=== PATIENT | male | born 1960 | race Caucasian/White ===

== ENCOUNTER → 2023-09-16 07:44 | Outpatient (ROUT) | payer SELFPAY ==
[2023-09-16 08:13] LABS: Hematocrit 39.7 % (41-53); Hemoglobin 13.6 g/dL (13.5-17.5); Mean Corpuscular HGB Conc 34.3 % (30-36); Mean Corpuscular Hemoglobin 29.1 PG (26-34); Mean Corpuscular Volume 84.9 fL (80-100); Platelet Count 283 X10^3/uL (150-400); Red Blood Cell Count 4.68 X10^6/uL (4.5-5.9); Red Cell Distribution Width 13.3 % (11.6-14.8); White Blood Cell Count 8.1 X10^3/uL (4.5-11.0)
[2023-09-16 08:51] LABS: BUN Creatinine Ratio 18.8 (6-22); Blood Urea Nitrogen 13 mg/dL (9-20); Calcium 9.1 mg/dL (8.4-10.2); Carbon Dioxide 28 mmol/L (22-32); Chloride 107 mmol/L (98-107); Estimated Glomerular Filt Rate > 60 mL/min (>60); Glucose 107 mg/dL (80-110); HEMOLYSIS 16 (0-50); Magnesium 2.1 mg/dL (1.6-2.3); Potassium 4.3 mmol/L (3.4-5.1); Sodium 139 mmol/L (137-145)
[2023-09-16 09:01] LABS: NT-proBNP (BNP-Adult 18+) 258 pg/mL (<125)
== END ==
LOC: LAB 07:44
PROVIDERS: Visit Provider Registered Nurse
DX: I10 Essential (primary) hypertension (principal); R60.9 Edema, unspecified
CPT/HCPCS: 36415; 80048; 83735; 83880; 85027

== ENCOUNTER 2024-01-28 16:33 | Emergency (ER) | payer OTHER, MEDICAID, SELFPAY ==
[2024-01-28] VITALS (14 sets, daily range): BP systolic 165–203; BP diastolic 74–94; PULSE 72–85; RESP 18–35; TEMP 36.6; O2SAT 91–97; BMI 30.1
--- NOTE | 2024-01-28 16:39 | EKG_ITS ---
[address] [address] [address] [address] Test Date: 2024-01-28 Pat Name: Marino Mullen Department: Room: Gender: Male Protection Consultant: teto : 1960 Requested By: Order Number: [id number] Reading MD: Talon Velazco Measurements Intervals [place] Rate: 72 P: 52 NE: 146 QRS: 73 QRSD: 86 T: 46 QT: 396 QTc: 433 Interpretive Statements Normal sinus rhythm Electronically Signed On 01-29-2024 17:32:18 PST by Talon Velazco
--- NOTE | 2024-01-28 16:39 | DI.RAD.S_ITS ---
PROCEDURE: XR CHEST 1V INDICATIONS: Shortness of breath TECHNIQUE: One view of the chest was acquired. COMPARISON: None. FINDINGS: Surgical changes and devices: None. Lungs and pleura: Lungs are difficult to accurately assess due to reduced inspiratory volume and patient rotation and tilt rightward. This causes crowding of bronchovascular markings, left slightly greater than right. No pleural effusions or pneumothorax. Mediastinum: Mediastinal contours appear normal. Heart size is normal. Bones and chest wall: No suspicious bony lesions. Overlying soft tissues appear unremarkable. IMPRESSION: Prominent reduced inspiration and mild rotation and tilt rightward. Limited study, no definite acute disease. Dictated by: Arie Miguel M.D. on 01/28/2024 at 17:00 Approved by: Arie Miguel M.D. on 01/28/2024 at 17:00
[2024-01-28 16:52] LABS: INR 1.2 (0.9-1.3); Prothrombin Time 13.2 SECONDS (9.4-12.5)
[2024-01-28 16:53] LABS: Add Manual Diff / Slide Review NO; Basophils Absolute Auto 100 /uL (0-100); Basophils Percent Auto 0.6 % (0-2); Eosinophils Absolute Auto 300 /uL (0-450); Eosinophils Percent Auto 2.1 % (2-4); Hematocrit 43.3 % (41-53); Hemoglobin 14.3 g/dL (13.5-17.5); Lymphocytes Absolute Auto 1600 /uL (1100-4500); Lymphocytes Percent Auto 11.3 % (25-40); Mean Corpuscular HGB Conc 33.1 % (30-36); Mean Corpuscular Hemoglobin 28.3 PG (26-34); Mean Corpuscular Volume 85.3 fL (80-100); Monocytes Absolute Auto 1300 /uL (0-900); Monocytes Percent Auto 9.4 % (3-14); Neutrophils Absolute Auto 10600 /uL (1500-7000); Neutrophils Percent Auto 76.6 % (50-75); Platelet Count 302 X10^3/uL (150-400); Red Blood Cell Count 5.07 X10^6/uL (4.5-5.9); Red Cell Distribution Width 13.4 % (11.6-14.8); White Blood Cell Count 13.9 X10^3/uL (4.5-11.0)
[2024-01-28 16:56] LABS: Lactate (Lactic Acid) 1.1 mmol/L (0.7-2.1)
[2024-01-28 16:57] LABS: Alanine Aminotransferase 9 IU/L (<50); Albumin 4.5 g/dL (3.5-5.0); Albumin Globulin Ratio 1.5 (1.0-2.8); Alkaline Phosphatase 123 U/L (38-126); Aspartate Aminotransferase 25 IU/L (17-59); BUN Creatinine Ratio 18.5 (6-22); Bilirubin Total 0.6 mg/dL (0.2-1.3); Blood Urea Nitrogen 15 mg/dL (9-20); Calcium 9.3 mg/dL (8.4-10.2); Carbon Dioxide 29 mmol/L (22-32); Chloride 101 mmol/L (98-107); Estimated Glomerular Filt Rate > 60 mL/min (>60); Globulin 3.1 g/dL (1.7-4.1); Glucose 133 mg/dL (80-110); HEMOLYSIS < 15 (0-50); Potassium 4.4 mmol/L (3.4-5.1); Sodium 138 mmol/L (137-145); Total Protein 7.6 g/dL (6.3-8.2)
[2024-01-28 17:07] LABS: NT-proBNP (BNP-Adult 18+) 506 pg/mL (<125)
[2024-01-28 17:08] LABS: Troponin I < 0.012 ng/mL (0.01-0.034)
--- NOTE | 2024-01-28 17:43 | PC.NURSE ---
This RNs first interaction with patient.
[2024-01-28 17:46] LABS: Adenovirus Not Detected (Not Detect); B. parapertussis Not Detected (Not Detecte); Bordetella pertussis Not Detected (Not Detect); Chlamydophila pneumoniae Not Detected (Not Detect); Coronavirus 229E Not Detected (Not Detect); Coronavirus HKU1 Not Detected (Not Detect); Coronavirus NL 63 Not Detected (Not Detect); Coronavirus OC43 Not Detected (Not Detect); Human Metapneumovirus Not Detected (Not Detect); Human Rhinovirus/Enterovirus Detected (Not Detect); Influenza A Not Detected (Not Detect); Influenza B Not Detected (Not Detect); Mycoplasma pneumoniae Not Detected (Not Detect); Parainfluenza Virus 1 Not Detected (Not Detect); Parainfluenza Virus 2 Not Detected (Not Detect); Parainfluenza Virus 3 Not Detected (Not Detect); Parainfluenza Virus 4 Not Detected (Not Detect); Respiratory Syncytial Virus Not Detected (Not Detect); SARS- CoV-2 Not Detected (Not Detecte)
--- NOTE | 2024-01-28 18:25 | ED_ITS ---
HPI - General Adult General Chief complaint: Upper Respiratory Symptoms Stated complaint: URI Time Seen by Provider: 01/28/24 18:03 Source: patient Mode of arrival: EMS Limitations: other ( Parkinson's disease) History of Present Illness HPI narrative: patient is a 63-year-old male. History of Parkinson's disease. It was somewhat difficult to understand him however we were able to communicate with an HPI and review of systems. He was here from [facility]. Has had URI like symptoms for at least the past 24 hours if not somewhat longer. He states he was having some problems breathing. No shortness of breath. He does not ambulate. Uses a wheelchair at baseline. Not on home oxygen. Has been coughing, fevers, shortness of breath and wheezing at the facility. He denies any abdominal pain. No sore throat. Does have lower extremity swelling but he states this is not new. Related Data Allergies Allergy/AdvReac Type Severity Reaction Status Date / Time codeine Allergy Verified 01/28/24 16:46 Penicillins Allergy Verified 01/28/24 16:46 Review of Systems Review of Systems Narrative: see HPI Exam Initial Vital Signs Initial Vital Signs: Vital Signs Temperature 97.9 F 01/28/24 16:44 Pulse Rate 85 01/28/24 16:44 Respiratory Rate 22 01/28/24 16:44 Blood Pressure 185/88 H 01/28/24 16:44 Pulse Oximetry 97 01/28/24 16:44 Oxygen Delivery Method Room Air 01/28/24 16:44 Const General: cooperative HENMT Head: normal to inspection and normocephalic Resp Effort & Inspection: cough, not labored and tachypneic Auscultation: rhonchi and wheezes Cardio Rate: regular rate Rhythm: regular rhythm GI Inspection: normal to inspection Extrem General: edema Course Orders Ordered: ED Orders 01/28/24 16:30 Complete Blood Count AUTO DIFF Stat Comprehensive Metabolic Panel Stat Lactate (Lactic Acid) Stat NT-proBNP (BNP-Adult 18+) Stat Prothrombin Time INR Stat Troponin I Stat 01/28/24 16:39 XR chest 1V Stat EKG-12 Lead Stat 01/28/24 16:41 Respiratory Panel (Film Array) Stat Discontinued Medications Albuterol (Albuterol Hfa Prepack) 1 box [facility] [place] DIRECTED ONE Stop: 01/28/24 19:24 Last Admin: 01/28/24 20:28 Dose: 1 box Documented By: Albuterol/Ipratropium (Albuterol/Ipratropium 3 Ml Ampul) 3 ml INH NOW ONE Stop: 01/28/24 18:27 Last Admin: 01/28/24 18:36 Dose: 3 ml Documented By: REECE Vital Signs Vital signs: Vital Signs - 8 hr 01/28/24 16:44 01/28/24 17:44 01/28/24 18:00 Temperature 97.9 F Pulse Rate 85 74 75 Respiratory Rate 22 26 H Blood Pressure 185/88 H Pulse Oximetry 97 94 96 Oxygen Delivery Method Room Air 01/28/24 18:01 01/28/24 18:01 01/28/24 18:30 Temperature Pulse Rate 72 74 Respiratory Rate 29 H 35 H Blood Pressure 186/94 H Pulse Oximetry 96 95 Oxygen Delivery Method 01/28/24 18:31 01/28/24 18:31 01/28/24 18:36 Temperature Pulse Rate 74 79 Respiratory Rate 35 H 30 H Blood Pressure 166/76 H Pulse Oximetry 91 97 Oxygen Delivery Method Room Air 01/28/24 19:00 01/28/24 19:01 01/28/24 19:01 Temperature Pulse Rate 77 77 Respiratory Rate 24 30 H Blood Pressure 203/83 H Pulse Oximetry 96 95 Oxygen Delivery Method 01/28/24 19:30 01/28/24 19:31 01/28/24 19:31 Temperature Pulse Rate 79 79 Respiratory Rate 20 18 Blood Pressure 179/81 H Pulse Oximetry 97 97 Oxygen Delivery Method 01/28/24 20:00 01/28/24 20:00 01/28/24 20:30 Temperature Pulse Rate 79 79 Respiratory Rate 27 H 29 H Blood Pressure 174/77 H Pulse Oximetry 95 95 Oxygen Delivery Method 01/28/24 20:30 01/28/24 21:00 01/28/24 21:00 Temperature Pulse Rate 79 Respiratory Rate 32 H Blood Pressure 167/77 H 165/74 H Pulse Oximetry 95 Oxygen Delivery Method Medical Decision Making Lab Data Lab results reviewed: Yes I reviewed the patient's lab results. 01/28/24 16:30 01/28/24 16:30 Labs: Lab Results 01/28/24 01/28/24 Range/Units 16:30 16:41 WBC 13.9 H (4.5-11.0) X10^3/uL RBC 5.07 (4.5-5.9) X10^6/uL Hgb 14.3 (13.5-17.5) g/dL Hct 43.3 (41-53) % MCV 85.3 (80-100) fL MCH 28.3 (26-34) PG MCHC 33.1 (30-36) % RDW 13.4 (11.6-14.8) % Plt Count 302 (150-400) X10^3/uL Neut % (Auto) 76.6 H (50-75) % Lymph % (Auto) 11.3 L (25-40) % Coffee % (Auto) 9.4 (3-14) % Eos % (Auto) 2.1 (2-4) % Baso % (Auto) 0.6 (0-2) % Neut # (Auto) 89911 H (1155-6101) /uL Lymph # (Auto) 1600 (1575-1983) /uL Coffee # (Auto) 1300 H (0-900) /uL Eos # (Auto) 300 (0-450) /uL Baso # (Auto) 100 (0-100) /uL PT 13.2 H (9.4-12.5) SECONDS INR 1.2 (0.9-1.3) Sodium 138 (137-145) mmol/L Potassium 4.4 (3.4-5.1) mmol/L Chloride 101 (98-107) mmol/L Carbon Dioxide 29 (22-32) mmol/L BUN 15 (9-20) mg/dL Creatinine 0.81 (0.66-1.25) mg/dL Estimated GFR > 60 (>60) mL/min BUN/Creatinine Ratio 18.5 (6-22) Glucose 133 H (80-110) mg/dL Lactate 1.1 (0.7-2.1) mmol/L Calcium 9.3 (8.4-10.2) mg/dL Total Bilirubin 0.6 (0.2-1.3) mg/dL AST 25 (17-59) IU/L ALT 9 (<50) IU/L Alkaline Phosphatase 123 (38-126) U/L Troponin I < 0.012 (0.01-0.034) ng/mL NT-Pro-B Natriuret Pep 506 H (<125) pg/mL Total Protein 7.6 (6.3-8.2) g/dL Albumin 4.5 (3.5-5.0) g/dL Globulin 3.1 (1.7-4.1) g/dL Albumin/Globulin Ratio 1.5 (1.0-2.8) Chlamy pneumoniae PCR Not detected (Not Detect) Adenovirus (PCR) Not detected (Not Detect) B. pertussis DNA (PCR) Not detected (Not Detect) B.parapertussis DNA PCR Not detected (Not Detecte) Coronavirus OC43 (PCR) Not detected (Not Detect) Coronavirus HKU1 (PCR) Not detected (Not Detect) Coronavirus 229E (PCR) Not detected (Not Detect) SARS-CoV-2 (PCR) Not detected (Not Detecte) Coronavirus NL63 (PCR) Not detected (Not Detect) Human Metapneumovir PCR Not detected (Not Detect) Influenza Type A (PCR) Not detected (Not Detect) Influenza Type B (PCR) Not detected (Not Detect) M. pneumoniae (PCR) Not detected (Not Detect) Parainfluenza 1 (PCR) Not detected (Not Detect) Parainfluenza 2 (PCR) Not detected (Not Detect) Parainfluenza 3 (PCR) Not detected (Not Detect) Parainfluenza 4 (PCR) Not detected (Not Detect) RSV (PCR) Not detected (Not Detect) Entero/Rhino (PCR) Detected H (Not Detect) Imaging Data Chest x-ray: Radiologist's Impression: PROCEDURE: XR CHEST 1V INDICATIONS: Shortness of breath TECHNIQUE: One view of the chest was acquired. COMPARISON: None. FINDINGS: Surgical changes and devices: None. Lungs and pleura: Lungs are difficult to accurately assess due to reduced inspiratory volume and patient rotation and tilt rightward. This causes crowding of bronchovascular markings, left slightly greater than right. No pleural effusions or pneumothorax. Mediastinum: Mediastinal contours appear normal. Heart size is normal. Bones and chest wall: No suspicious bony lesions. Overlying soft tissues appear unremarkable. IMPRESSION: Prominent reduced inspiration and mild rotation and tilt rightward. Limited study, no definite acute disease. ECG Data Attestation: I personally reviewed and interpreted this ECG as follows: Interpretation: sinus rhythm Ventricular rate is 72 Normal axis Normal QRS Normal QTC No ST T changes MDM Narrative Medical decision making narrative: he does have leukocytosis but he was also positive for entero / rhino virus. His chest x-ray does not show any signs of pneumonia. He was not hypoxic. After breathing treatment his lungs are clear. He reports some improvement of his shortness of breath after the breathing treatment. There was no indication for antibiotics as he most likely has a viral illness based on his respiratory panel. No indication for admission to the hospital. He was not in overt heart failure. He was not hypoxic. Not tachycardic. Denies chest pain. I do think he would benefit from albuterol. He was given a prepack with a spacer. I also think that an incentive spirometer will be helpful because he does not ambulate because of his Parkinson's disease. Will discharge patient back to his living facility with return precautions. Discharge Plan Departure Patient Disposition: Home Clinical Impression: Rhinovirus infection, Bronchitis Instructions: DI for Acute Bronchitis Activity Restrictions/Additional Instructions: Marino can continue to take all of his medications as directed. For the next 24 hours he can use the albuterol MDI with a spacer every 4 hours while awake and every 2 hours as needed. After this 24 hours he can use the albuterol every 4 hours as needed. Contact his primary doctor for follow-up. Return to the emergency department for new symptoms. Referrals: Fadi Brooks MD [Primary Care Provider] - Stand Alone Forms: Patient Portal/API/Survey
[2024-01-28] MEDS: ALBUTEROL/IPRATROPIUM 3 ML AMPUL INH (18:36)
[2024-01-28] MEDS: ALBUTEROL HFA PREPACK 1 BOX MISC (20:28)
--- NOTE | 2024-01-29 18:31 | EKG_ITS ---
[address] [address] Test Date: 2024-01-29 Pat Name: Marino Peña Department: [facility] Room: Gender: Male News Agent: : 1960 Requested By: Order Number: [id number] Reading MD: Talon Velazco Measurements Intervals [place] Rate: 75 P: 47 [place]: 138 QRS: 72 QRSD: 82 T: 46 QT: 380 QTc: 424 Interpretive Statements Normal sinus rhythm Electronically Signed On 01-31-2024 15:30:56 PST by Talon Velazco
--- NOTE | 2024-02-05 05:05 | EKG_ITS ---
[address] [address] Test Date: 2024-02-05 Pat Name: Marino Peña Department: Room: Gender: Male Plant Technician/Control Room Operator: NIALL : 1960 Requested By: Order Number: [id number] Reading MD: Dewayne Sanchez MD Measurements Intervals [place] Rate: 73 P: 46 [place]: 122 QRS: 72 QRSD: 88 T: 25 QT: 432 QTc: 475 Interpretive Statements Normal sinus rhythm Electronically Signed On 02-06-2024 6:41:19 PST by Dewayne Sanchez MD
== END 2024-01-28 21:21 | disposition home or self-care (01) ==
PROVIDERS: Emergency Medicine; Emergency Provider Emergency Medicine; PCP Internal Medicine
DX: J20.6 Acute bronchitis due to rhinovirus (principal); R05.9 Cough, unspecified; R50.9 Fever, unspecified; R06.02 Shortness of breath
CPT/HCPCS: 36415; 71045; 80053; 83605; 83880; 84484; 85025; 85610; 87633; 93005; 93010; 94640; 99284